=== PATIENT | male | born 1945 | race Caucasian/White ===

== ENCOUNTER 2021-01-12 23:48 | Emergency (ER) | payer OTHER ==
[~2021-01-12] VITALS: Ht 175.3 cm; Wt 113.4 kg
[2021-01-12] MEDS ORDERED: FLOMAX0.4 MG PO (23:51)
[2021-01-12] MEDS ORDERED: LOVASTAT10 PO (23:52)
[2021-01-12] MEDS ORDERED: DULOXETINE HCL60 MG PO (23:52)
[2021-01-12] MEDS ORDERED: OMEPRAZOLE40 MG PO (23:53)
[2021-01-12] MEDS ORDERED: PROSCAR 5MG TABL5 M1 PO (23:53)
[2021-01-12] MEDS ORDERED: LISINOPRIL-HCT1 EAC1 PO (23:53)
[2021-01-12] MEDS ORDERED: TESSALON PERLE100 M1 PO (23:53)
[2021-01-12] MEDS ORDERED: VOLTAREN 50MG T50 MG PO (23:54)
[2021-01-13 04:24] VITALS: BP 152/82
== END 2021-01-13 04:15 ==
LOC: ER 23:48
DX: F29 Unspecified psychosis not due to a substance or known physiological condition (principal); R45.851 Suicidal ideations; I10 Essential (primary) hypertension; E78.5 Hyperlipidemia, unspecified; K21.9 Gastro-esophageal reflux disease without esophagitis; Z79.899 Other long term (current) drug therapy; Z20.822 Contact with and (suspected) exposure to COVID-19

== ENCOUNTER 2021-01-13 00:50 | Inpatient (IN) | payer OTHER ==
[~2021-01-13] VITALS: Ht 175.3 cm; Wt 112.0 kg
[~2021-01-13 00:50] MED LIST: DULOXETINE HCL60 MG PO; FLOMAX0.4 MG PO; LISINOPRIL-HCT1 EAC1 PO; LOVASTAT10 PO; OMEPRAZOLE40 MG PO; PROSCAR 5MG TABL5 M1 PO; TESSALON PERLE100 M1 PO; VOLTAREN 50MG T50 MG PO
[2021-01-13 05:10] VITALS: BP 140/81
[2021-01-13 09:19] VITALS: BP 167/87
[2021-01-13 19:57] VITALS: BP 143/75
[2021-01-14 13:22] LABS: ABSOLUTE NEUTROPHILS 6.1 thou/uL (1.4-8.2); BASOPHILS 0.9 % (0.0-2.0); EOSINOPHILS 3.6 % (0.0-3.0); HEMATOCRIT 41.1 % (42.0-52.0); HEMOGLOBIN 13.6 gm/dL (14.0-18.0); LYMPHOCYTES 16.8 % (24.0-44.0); MCH 31.6 pg (26.0-34.0); MCHC 33.2 g/dL (28.0-37.0); MCV 95.2 fL (80.0-100.0); MONOCYTES 6.7 % (1.0-8.0); PLATELET COUNT 282 thou/uL (150-400); RBC 4.31 mil/uL (4.50-6.00); RDW 13.8 % (10.5-14.5); WBC 8.4 thou/uL (4.0-11.0)
[2021-01-14 13:29] LABS: CALCIUM 8.6 mg/dL (8.5-10.1); CREATININE 1.4 mg/dL (0.7-1.3); MAGNESIUM 1.8 mg/dL (1.8-2.4)
[2021-01-14 14:00] LABS: FOLIC ACID 16.2 ng/mL (8.6-58.9)
--- NOTE | 2021-01-14 14:06 | H ---
[facility] [place] [place] [address] HISTORY AND PHYSICAL Name: RUTH BRAVO Room #: 526A-A ADM IN .R.#: [id number] Admission: 01/13/21 Attend Phys: James Lundy MD Discharge: Date of : 45 Report #: [id number] THIS REPORT FOR: cc: FAM - Family physician unknown FAM - Family physician unknown Murphy Traylor DO ~ DATE OF SERVICE: 01/13/2021 INPATIENT PSYCHIATRIC EVALUATION ATTENDING PSYCHIATRIST: Murphy Traylor DO FRAME CHANGER: Iva Black APRN and the Hospitalist service. REASON FOR ADMISSION: Agitation. HISTORY OF PRESENT ILLNESS: This is a 75-year-old obese male who was brought by EMS to the [facility]. He was vocal on arrival, a little upset. It was initially reported a friend called police because the friend's house was called 7 times a day and he picked up the phone and then hung up. He also has apparently been at [facility] a week ago for psychosis. The patient denies any chest pain or shortness of breath. He does admit that occasionally he is suicidal. He has not attempted to hurt himself any means. He has no auditory or visual hallucinations. Denied drugs or alcohol. The social work job titles at [facility] did some more digging. His behavior has been erratic. He was a difficult interview for her. He wants permission for everything anyone does. Apparently, collateral was gotten from Chelsea Reyes at [phone]. She indicates through volunteer work, she and her spouse met the patient and they have known him for over a year. She reports she is unable what resource provided for him, but he was able to obtain an apartment. Ms. Reyes assisted with getting the patient items herself as well as daughter saw him this morning and the patient was in need of care. Ms. Reyes states he was in [place] last week. Ms. Reyes states she called the ambulance when the patient called her 7 times within 20 minutes. Apparently, he has had a prior suicide attempt, isolating in his apartment not receiving treatment. No legal history, unemployed, and not in school. PAST MEDICAL HISTORY: Includes hyperlipidemia, hypertension, and leg swelling. SOCIAL/FAMILY HISTORY: No pertinent surgical and family history. He smokes 4 packs a day, never used tobacco. He does drink alcohol. He states he does not keep any at home. REVIEW OF SYSTEMS: CONSTITUTIONAL: Negative. [address] [address] HISTORY AND PHYSICAL Name: RUTH BRAVO Room #: 526A-A [facility] IN ..#: [id number] Admission: 01/13/21 Attend Phys: James Lundy MD Discharge: Date of : 45 Report #: [id number] HEENT: Negative. EYES: Negative. RESPIRATORY: Negative. CARDIOVASCULAR: Negative. GASTROINTESTINAL: Negative. GENITOURINARY: Negative. MUSCULOSKELETAL: Negative. SKIN: Negative. NEUROLOGIC: Negative. PSYCHIATRIC: Positive for agitation, behavioral symptoms. Negative for confusion. Does report memory problems. EKG done at [facility] shows sinus rhythm, borderline left axis deviation and rate 65, PVC 426, CA interval 159. HOME MEDICATIONS: Noted to be tamsulosin, lovastatin, duloxetine, benzonatate, omeprazole, lisinopril, hydrochlorothiazide, finasteride, and diclofenac. There are 2 affidavits accompanied the patient. Chelsea Reyes was one of them and there was social work job titles named Lydia The patient stated, "no you can't come and walk out, you pointed your finger at me." All this is from the SAW REPAIRER that saw him. From Chelsea Reyes, she states the patient's behavior changed on 01/01/2021. He was noticed to be more confused and making a few trips out and was disoriented and belligerent. Also, she has had to intervene and was taken by ambulance to [facility] on 01/05/2021. He was seen is his apartment when she had everything turned around the living room, talked for 30 minutes, jumping from one subject to another and conversation very incoherent. After 01/05/2021, she received multiple phone calls from the patient because he needed to tell me I was at the top of his head, claimed to have anatomic pathology assistant, wanted to hire a prostitute, and even spent time with Gilberto Freitas for [place] and to know how to get out my house and that if something happened to me, he would be the suspect. He said he wanted to . Needed a cuprous chloride helper to get his things in order, so he contemplates suicide and repeated. Chelsea's number is [phone]. LABORATORY DATA: From [facility] CBC, BMP ordered for tomorrow. PHYSICAL EXAMINATION: VITAL SIGNS: Today, temperature 36.2, pulse 78, respirations 19, BP 167/87, O2 sat 97%. MUSCULOSKELETAL: Obese, male who reportedly weak, but he can propel himself. He is embellishing degree of disability. Wheelchair was driven by this author. [facility] [address] [place] [address] HISTORY AND PHYSICAL Name: RUTH BRAVO Room #: 526A-A [facility] IN ..#: [id number] Admission: 01/13/21 Attend Phys: James Lundy MD Discharge: Date of : 45 Report #: [id number] MENTAL STATUS EXAMINATION: Attention fair. Concentration fair. Speech is normal rate. Thought process: Linear and goal directed. Thought content focused on things of little importance. Psychomotor agitation at times. No psychomotor retardation. Denied SI or HI. Denied auditory, visual, or tactile hallucinations. Memory not formally tested. Mood and affect congruent, irritable, and constricted. Insight impaired, judgment impaired. Fund of knowledge, high average. FORMULATION: A 75-year-old male brought in by first responders, initially involuntary, appears to have recent hospitalization for psychosis. currently is voluntary. DIAGNOSES: At this time, unspecified psychosis, rule out schizoaffective disorder. MEDICAL COMORBIDITIES: Include obesity, hyperlipidemia, hypertension. PLAN: Evaluate, stabilize, and obtain collateral. Haldol started 2 mg twice a day. Other medications as above. Time spent on interview, review of records, and coordination of care is at least 75 minutes, greater than 50% spent on coordination of care. <ELECTRONICALLY SIGNED> By: Murphy Traylor, 01/14/21 1406 1550 1700 Murphy Traylor, DO /nt
[2021-01-14 20:09] VITALS: BP 101/52
[2021-01-15 13:44] LABS: CREATININE 1.1 mg/dL (0.7-1.3); MAGNESIUM 1.8 mg/dL (1.8-2.4); PHOSPHORUS 4.3 mg/dL (2.6-4.7)
[2021-01-16 10:21] VITALS: BP 157/80
[2021-01-16 12:20] VITALS: BP 157/80
[2021-01-16] MEDS ORDERED: LISINOPRIL20 MG PO (14:26)
[2021-01-16 15:33] VITALS: BP 157/80
--- NOTE | 2021-01-17 07:29 | D ---
[facility] [address] [address] DISCHARGE SUMMARY Name: RUTH BRAVO Room #: 526A-A [facility] IN ..#: [id number] Admission: 01/13/21 Attend Phys: James Lundy MD Discharge: 01/16/21 Date of : 45 Report #: [id number] THIS REPORT FOR: cc: FAM - Family physician unknown FAM - Family physician unknown Murphy Traylor DO ~ DATE OF SERVICE: 01/16/2021 ATTENDING PSYCHIATRIST: Murphy Traylor DO. 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 Additional comorbidities medical heavily include obesity with BMI of 36.5, hypertension, BPH, on Flomax; hyperlipidemia. DISCHARGE PLAN: The patient is discharging to his home in [place], [place]. The patient is urged to establish at [facility] for both Psychiatric and medical reasons. The patient was counseled on the need for followup of his present mild hyponatremia. DISCHARGE MEDICATIONS: The patient refused to take haloperidol for mood stabilization and psychosis, which he was prescribed, but states, he was not discharged on this. Other medications at the time of discharge include sodium chloride 1 gram twice a day, tamsulosin 0.4 mg p.o. daily, lisinopril 20 mg p.o. daily, which he was given 30-day prescription for, hydrochlorothiazide is discontinued due to his hyponatremia, finasteride 5 mg p.o. daily, duloxetine 60 mg p.o. daily. He was advised there is a possibility of SIADH, which is syndrome of inappropriate antidiuretic hormone secretion due to the duloxetine. Home meds at visit is diclofenac 75 mg p.o. daily, atorvastatin 10 mg p.o. daily, pantoprazole 40 mg p.o. daily. The patient was given crisis hotline information. LABORATORY DATA: Significant laboratories this admission: CBC: H and H 13.6 and 41.1 on 01/14/2021. White count 8.4 and platelet count 282. Chemistries: Sodium again decreased from 134 on 01/14/2021 to 128 on 01/15/2021, chloride 98, bicarbonate 18, anion gap 12, BUN 27, creatinine 1.1, glucose 98, calcium 9.0, phosphorus 4.3, magnesium 1.8. Vitamin B12 730. Folate is 16.2. TSH is 0.535. Thyroid was normal. Folate and B12 were adequate. COVID-19 PCR was negative. REASON FOR ADMISSION: Back on 01/13/2021, a 75-year-old male referred from [facility]. Apparently, he had been calling neighbor repeatedly. The neighbor was concerned as for mental health evaluation. He was reportedly recently at [facility] Psych hospitalization. The patient himself reports Research hospitalization, was also reported that he threatened suicide [address] [address] DISCHARGE SUMMARY Name: RUTH BRAVO Room #: 526A-A [facility] IN ..#: [id number] Admission: 01/13/21 Attend Phys: James Lundy MD Discharge: 01/16/21 Date of : 45 Report #: [id number] to his neighbor. HOSPITAL COURSE: The patient was admitted to Geriatric Psychiatry Unit. He denied suicidal or homicidal behavior. The patient was also often stating he had difficulty walking, would be needy, demanding things. He was a few instances assaultive to staff, he was noncompliant with psychiatric medications. He was narcissistic frequently and belligerent. It is a feeling of this author that further psychiatric hospitalization would not be fruitful given his refusal to take medication. He was intact on the therapeutic milieu. Therefore, the patient is being discharged. He is urged to follow up for both his general medical needs including the obesity, BPH, and namely the recently detected hyponatremia. PHYSICAL EXAMINATION: Normal gait and station. MENTAL STATUS EXAMINATION: This is a well-developed, obese male, appearing stated age, but unkempt. Attention intact. Concentration intact. Speech is normal rate and tone. Thought process is linear and goal directed. Thought content focused on getting his needs met. No psychomotor retardation. No psychomotor agitation. Denied SI or HI. Denied hopelessness or helplessness. Memory not formally tested today. Insight limited. Judgment fair to limited. Fund of knowledge, low average range. PROGNOSIS: For this patient is guarded given concerns of unkempt living conditions, needs to manage his health care. Failure to follow up compliance issues. <ELECTRONICALLY SIGNED> By: Murphy Traylor DO 01/17/21 0729 [id number] [id number] Murphy Traylor DO /nt
== END 2021-01-16 16:20 | disposition home or self-care (01) | DRG 885 ==
LOC: SBH 00:50 → EROBS 04:21 → SBH 04:21 → EROBS 04:21 → SBH 05:10
PROVIDERS: Hospitalist; Nurse Practitioner; ADMIT Psychiatry & Neurology Psychiatry; ATTEND Psychiatry & Neurology Psychiatry
DX: F23 Brief psychotic disorder (principal); R45.851 Suicidal ideations; E87.1 Hypo-osmolality and hyponatremia; F60.81 Narcissistic personality disorder; E78.5 Hyperlipidemia, unspecified; I10 Essential (primary) hypertension; Z60.2 Problems related to living alone; F31.9 Bipolar disorder, unspecified; F22 Delusional disorders; E66.9 Obesity, unspecified; N40.0 Benign prostatic hyperplasia without lower urinary tract symptoms; Z90.49 Acquired absence of other specified parts of digestive tract; Z79.899 Other long term (current) drug therapy; Z68.36 Body mass index [BMI] 36.0-36.9, adult
CPT/HCPCS: 10880